=== PATIENT | female | born 1950 | race Caucasian/White ===

== ENCOUNTER 2017-04-10 08:55 | Day surgery (SDC) | payer MEDICARE ==
[2016-04-11 11:46] VITALS: BMI 25.6
[2017-04-10] MEDS ORDERED: Bupivacaine 0.5%/Epi 1:200,000 (10 ML SOL) ONE (09:42)
[2017-04-10] MEDS ORDERED: Bupivacaine 0.5% Inj(30mL) ONE (09:42)
[2017-04-10 09:48] VITALS: RESP 18
[2017-04-10] MEDS ORDERED: Lidocaine 2% w Epi 1:100,000 Inj IJ ONE (10:16)
--- NOTE | 2017-04-10 10:59 | PCM.SURG1 ---
Surgeon's Initial Post Op Note - Surgeon's Notes Surgeon: Dr. Moore Outside Event Sales Specialist: Nikki Carrasquillo PGY2 Type of Anesthesia: Local Pre-Operative Diagnosis: infra-umbilical skin lesion Operative Findings: superficial skin lesion 5mm diameter Post-Operative Diagnosis: same Operation Performed: excision of infraumbilical skin lesion Specimen/Specimens Removed: skin lesion Estimated Blood Loss: EBL {In ML}: 2 Date of Surgery/Procedure: 04/10/17 Time of Surgery/Procedure: 10:10
[2017-04-10 11:09] VITALS: O2SAT 99
[2017-04-10 11:26] VITALS: BP 121/67; PULSE 65; TEMP 97.9
--- NOTE | 2017-04-10 13:21 | OP ---
PROCEDURE DATE: 04/10/2017 PREOPERATIVE DIAGNOSIS: Mole, periumbilical area. POSTOPERATIVE DIAGNOSIS: Mole, periumbilical area. PROCEDURE PERFORMED: Wide excision. FINDINGS: There is a pigmented lesion, about 4 to 5 mm in size, located in the inferior portion of the umbilicus on the skin; allegedly, it has changed in shape and size and required wide excision. DESCRIPTION OF PROCEDURE: Under local anesthesia utilizing lidocaine 2% with epinephrine, the patient was prepared and draped. A wide elliptical incision was made around the lesion, extended down to the subcutaneous tissue. The entire lesion with less portion of subcutaneous tissue was then excised. Bleeding was controlled with electrocautery and then, the wound was then closed in layers utilizing multiple interrupted sutures of 3-0 Vicryl for the subcutaneous tissue and a continuous subcuticular suture of 4-0 Monocryl for the skin aided with INDERMIL glue. Jarad Moore MD
== END 2017-04-10 11:20 | disposition home or self-care (01) ==
LOC: C.SDS 08:55
PROVIDERS: ATTEND Surgery
DX: D22.5 Melanocytic nevi of trunk (principal)

== ENCOUNTER 2018-08-01 05:56 | Day surgery (SDC) | payer MEDICARE ==
[2018-07-21 08:34] VITALS: BMI 26.2
[2018-08-01] MEDS ORDERED: Propofol 10 mg/ml Inj (20 ML) ONE (07:45)
[2018-08-01] MEDS ORDERED: Midazolam 2 MG/2 ML VIAL ONE (07:45)
[2018-08-01] MEDS ORDERED: Iohexol 240 (50 ml) ONE (07:46)
[2018-08-01] MEDS ORDERED: cefTRIAXone 1 gm 1 GM/100 ML BAG IVPB ONE (07:46)
[2018-08-01] MEDS ORDERED: Lidocaine 2% Jelly (Uro-Jet) ONE (07:47)
--- NOTE | 2018-08-01 08:43 | PCM.SURG1 ---
Surgeon's Initial Post Op Note - Surgeon's Notes Surgeon: Doron Yañez Border Measurer: none Type of Anesthesia: General LMA Pre-Operative Diagnosis: R ureteral calculus Operative Findings: same Post-Operative Diagnosis: same Operation Performed: cysto. R ureteroscopy. Laser lithotripsy. stone basketing. stent insertion Specimen/Specimens Removed: urine, stone Estimated Blood Loss: EBL {In ML}: 0 Post-Op Condition: Good Date of Surgery/Procedure: 08/01/18 Time of Surgery/Procedure: 08:42
[2018-08-01] MEDS ORDERED: Lactated Ringer's 1,000 ML IV ONE (08:45)
[2018-08-01] MEDS ORDERED: HYDROmorphone 0.5 mg/0.5 ml ISec IVP PRN (08:46)
[2018-08-01 09:02] VITALS: RESP 16; TEMP 98.2
[2018-08-01 09:05] VITALS: O2SAT 100
[2018-08-01 10:10] VITALS: PULSE 60
[2018-08-01 10:51] VITALS: BP 123/67
--- NOTE | 2018-08-01 13:21 | RAD ---
Date of service: 08/01/2018 HISTORY: RT. URETER CALCULI COMPARISON: None available. FINDINGS: BOWEL: Nonobstructive bowel gas pattern identified. Moderate retained fecal material scattered throughout various large-bowel segments, right greater than left with the left hemicolon appearing at least partially collapsed. No large free intrarenal gas collection identified. Surgical clips noted right lower quadrant abdomen. BONES: Advanced degenerative facet arthropathy inferior lumbar spine. Degenerative sacroiliac and hip joint changes identified as well. OTHER FINDINGS: Right double-J ureteral stent appears in situ with no radiodense calculi abutting the stent in the 2 obliquities submitted. None are seen overlying the bilateral renal silhouettes grossly. IMPRESSION: Right double-J ureteral stent identified unremarkable appearance with no adjacent calculi are appreciated at this time. None are seen overlying the bilateral renal silhouettes grossly.
--- NOTE | 2018-08-01 14:17 | RAD ---
Date of service: 08/01/2018 PROCEDURE: Intraoperative Fluoroscopy. HISTORY: RT. URETER CALCULI FINDINGS: Fluoroscopic assistance was provided for right double-J ureteral stent deployment. Please refer to the operative report from Dr. RAMOS EDDYVILLE. 10.6 sec of fluoroscopy time was utilized with total cumulative dose of [id number] mGym2.
--- NOTE | 2018-08-05 20:35 | OP ---
PROCEDURE DATE: 08/01/2018 UROLOGY OPERATIVE REPORT PREOPERATIVE DIAGNOSES: Right renal colic. Right distal ureteral calculus. POSTOPERATIVE DIAGNOSES: Right renal colic. Right distal ureteral calculus. PROCEDURES: Cystoscopy. Right ureteroscopy. Right laser ureteral lithotripsy. Right ureteral stone basketing. Insertion of right ureteral stent. Procedure was performed under video endoscopic control as well as under fluoroscopic control. DESCRIPTION OF PROCEDURE: Procedure as follows. The patient received perioperative antibiotics. The patient was placed in lithotomy position. Genitalia were prepped and draped sterilely. Anesthesia was provided by the anesthesiologist. Bait Painter film of the abdomen was obtained. The right ureteral stent was in proper position. There was no definite stone noted adjacent to the course of the stent. There was no definite radiodense stone noted adjacent to the course of the ureteral stent. A 22-Tu[place]uan cystoscope sheath was introduced with obturator. Urethra and bladder were inspected. There was noted to be mild cystitis. There was no bladder tumor. There was no bladder stone. The right ureteral stent was in proper position. The stent was grasped with rigid grasping forceps and delivered to the level of urethral meatus. A 0.035-inch guidewire was inserted into the right ureteral stent and passed up to level of the kidney. The stent was removed. A 7-Tu[place]uan mini rigid ureteroscope was introduced per urethra. The ureteral orifice was identified. The ureteroscope was advanced in atraumatic fashion into the ureter. The stone was encountered in the distal ureter. This was a yellow soft stone. Laser ureteral lithotripsy was performed using the holmium laser and the 365 micron fiber. Fragmentation was performed in the dusting mode. Multiple fragments were removed using the stone basket. The ureteroscopy was performed up to the level of the proximal ureter. There were no further stones identified. The ureteroscope was removed under direct vision. There was no ureteral trauma. The ureteral mucosa was intact. There were no residual stones. The ureteroscope was removed. A 6-[place] multilength stent was inserted over the guidewire. Proper stent position was confirmed with fluoroscopy and endoscopy. The guidewire was removed. A distal suture was left to exit per urethra from the stent. The bladder was re-inspected and confirmed the above findings. The bladder was then drained. Cystoscope and sheath were removed. The patient was returned to the supine position. Additionally, there were multiple fragments of stones encrusted on the stent. These fragments were sent separately for stone analysis. The patient tolerated procedure without complication. The patient was transferred to recovery room in satisfactory condition. Maia Yañez MD
== END 2018-08-01 12:03 | disposition home or self-care (01) ==
LOC: C.SDS 05:56
PROVIDERS: ATTEND Urology
DX: N20.1 Calculus of ureter (principal); E11.9 Type 2 diabetes mellitus without complications
CPT/HCPCS: 52356; 74019; 76000; 82365; 82948; 87086; 88300; C1769; C2617; J0696; J7120